=== PATIENT | female | born 1960 | race Caucasian/White ===

== ENCOUNTER → 2016-08-26 | Outpatient (CLI) | payer MEDICARE, OTHER ==
[~2016-08-26] MED LIST: COLACE 100MG C100 MG PO; FERROUS SULFAT325 MG PO; FLEXERIL 10 MG10 MG PO; LIPITOR TAB 1010 MG PO; LORTAB 5-325 M1 EACH PO; LOVENOX SY40 MG/0.4 SQ; TRAZODONE HCL150 MG PO
== END ==
LOC: CT 13:23
DX: R91.1 Solitary pulmonary nodule (principal)
CPT/HCPCS: 71250

== ENCOUNTER → 2020-09-11 | Outpatient (CLI) | payer MEDICARE, OTHER ==
[~2020-09-11] MED LIST changes: +ASPIRIN CHEWABL81 MG PO; +B 12 PO; +BIOTIN2500 MCG PO; +CENTRUM SILVER1 EAC1 PO; +CLARITIN10 M2 PO; +ELIQUIS 2.5 MG2.5 MG PO; +FOSAMAX70 MG PO; +IBUPROFEN800 MG PO; +KEFLEX CAP 500500 MG PO; +NORCO 10-325 T1 EACH PO; +NORCO 5-325 TA1 EACH PO; +PERCOCET 5/325 T1 EA PO; +SINUS DECONGEST10 MG PO; +SMZ-TMP DS PO; +TRAZODONE HCL300 MG PO; +VIT C PO; +VIT D PO; +VITAMIN D5000 UNIT PO
== END ==
LOC: KOH-I 12:45
DX: R91.1 Solitary pulmonary nodule (principal)
CPT/HCPCS: 71250

== ENCOUNTER → 2020-09-18 | Outpatient (CLI) | payer MEDICARE, OTHER | LOC: HEART 5 15:29 | DX: J44.9 Chronic obstructive pulmonary disease, unspecified (principal) | CPT/HCPCS: 94010 ==

== ENCOUNTER → 2021-01-15 | Outpatient (CLI) | payer MEDICARE, OTHER | LOC: EXRD 08:34 | DX: Z00.00 Encounter for general adult medical examination without abnormal findings (principal) | CPT/HCPCS: 71046 ==

== ENCOUNTER → 2021-06-29 | Outpatient (CLI) | payer MEDICARE, OTHER ==
[2021-06-29 08:27] LABS: HEMOGLOBIN 11.9 gm/dl (12.3-15.3); RED BLOOD COUNT 3.59 M/UL (4.00-5.10); WHITE BLOOD COUNT 5.2 K/UL (4.5-11.0)
[2021-06-29 08:42] LABS: BUN/CREATININE RATIO 12 (0-10)
== END ==
LOC: CT 06-04 09:30
PROVIDERS: Internal Medicine Hematology & Oncology
DX: C34.11 Malignant neoplasm of upper lobe, right bronchus or lung (principal)
CPT/HCPCS: 36415; 71260; 80053; 85025; Q9967

== ENCOUNTER → 2021-11-29 | Outpatient (CLI) | payer MEDICARE, OTHER | LOC: KOH-I 12:21 | DX: R68.84 Jaw pain (principal) | CPT/HCPCS: 70110; 70330 ==